=== PATIENT | male | born 1950 | race Caucasian/White ===

== ENCOUNTER 2017-05-30 21:12 | Emergency (ER) | payer OTHER ==
[2017-05-31] MEDS: HYDROCODONE/APAP (5/325) TAB PO (03:34)
[2017-05-31] MEDS: CYCLOBENZAPRINE 10 MG TAB PO (03:34)
== END 2017-05-31 04:28 | disposition home or self-care (01) ==
LOC: FTE 21:12
DX: S50.01XA Contusion of right elbow, initial encounter (principal); S43.401A Unspecified sprain of right shoulder joint, initial encounter; S39.012A Strain of muscle, fascia and tendon of lower back, initial encounter; S16.1XXA Strain of muscle, fascia and tendon at neck level, initial encounter; V89.2XXA Person injured in unspecified motor-vehicle accident, traffic, initial encounter
CPT/HCPCS: 73030; 73030-RT; 73080-RT; 99284-25